=== PATIENT | male | born 1980 | race Caucasian/White ===

== ENCOUNTER → 2017-05-09 | Outpatient (CLI) | payer OTHER ==
--- NOTE | 2017-05-09 17:46 | CONS ---
CONSULTATION REASON FOR CONSULTATION: Sleep apnea. This is a 37-year-old male patient who was very much concerned about sleep apnea. He was referred to me for further evaluation. He snores. He has witnessed apneas as reported by his . He is tired. He is an active sleeper. He does not go into deep stages of sleep and occasionally sleepwalks. He is very tired and sleepy during the day. He has a brother and father, both of whom have sleep apnea, and they are on treatment with CPAP. He goes to bed around 9 p.m., wakes up at 4 a.m. in the morning. 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 He never falls asleep while driving or doing his day-to-day activities at work. His Karnak score is 12. No recent weight gain. PAST MEDICAL HISTORY: Negative. SURGICAL HISTORY: Negative. DRUG ALLERGIES: NOT KNOWN. MEDICATIONS: None. SOCIAL HISTORY: Smoker. No history of alcoholism. No history of IV drugs. FAMILY HISTORY: Brother and father have obstructive sleep apnea. REVIEW OF SYSTEMS: Twelve-point review of systems was done. No insomnia. He denies waking up choking. Occasionally he has sleepwalking, especially when he feels very tired and sleepy. No restlessness in lower extremities. No anxiety or panic attacks. No palpitation. No heartburn. No claustrophobia. No sexual dysfunction. No depression. PHYSICAL EXAMINATION: BP 142/87, pulse 80, respiration 16, temperature 97.5, saturation 96% on room air. Weight is 252. Height is 72 inches. Karnak score 12. GENERAL APPEARANCE: Calm, comfortable. Head is atraumatic, normocephalic. Neck is short. Mallampati class IV. There is no goiter or neck masses. LUNGS: Clear to auscultation. HEART: Heart sounds are regular rate and rhythm. Normal S1, S2. No S3, S4. No murmurs. ABDOMEN: Soft, nontender. No organomegaly. EXTREMITIES: No edema. No cyanosis or clubbing. NEUROLOGIC: Alert and oriented x3. There is no focal neurological deficit. PSYCHIATRIC: Negative for anxiety or depression. SKIN: Negative for any wounds or ulceration. IMPRESSION: 1. Obstructive sleep apnea strongly suspected on clinical grounds. Currently needs further investigation. 2. Daytime drowsiness with an Karnak score of 12. 3. Mallampati class IV. 4. Positive family history of obstructive sleep apnea. PLAN: 1. Encourage weight loss. 2. Proceed with screening polysomnography to assess for any sleep breathing disorder and treat accordingly. ALISHAL / IJN: [id number] /
== END | disposition home or self-care (01) ==
LOC: SLEEP 16:24
PROVIDERS: ATTEND Internal Medicine Critical Care Medicine
DX: G47.33 Obstructive sleep apnea (adult) (pediatric) (principal); F17.200 Nicotine dependence, unspecified, uncomplicated; Z83.6 Family history of other diseases of the respiratory system
CPT/HCPCS: 99211

== ENCOUNTER → 2017-11-02 | Outpatient (CLI) | payer OTHER ==
--- NOTE | 2017-11-02 09:51 | CT ---
EXAMINATION TYPE: CT chest w con DATE OF EXAM: 11/02/2017 COMPARISON: None HISTORY: Bronchospasm CT DLP: 601 mGycm Automated exposure control for dose reduction was used. CONTRAST: CT scan of the chest is performed with IV Contrast, patient injected with 100 ml mL of Isovue 300. FINDINGS: LUNGS: The lungs are grossly clear, there is no concerning parenchymal mass or nodule identified. T here is no pleural effusion or pneumothorax seen. The tracheobronchial tree is patent. MEDIASTINUM: There are no greater than 1 cm hilar or mediastinal lymph nodes. No pericardial effusi on is seen. Thoracic aorta is of normal caliber. The heart is not enlarged. Calcified hilar mediasti nal lymph nodes. UPPER ABDOMEN: No significant abnormality appreciated. OTHER: No additional significant abnormality is seen. IMPRESSION: No distinct abnormality appreciated at this time.
== END | disposition home or self-care (01) ==
LOC: RADCTMAIN 08:56
PROVIDERS: ATTEND Internal Medicine
DX: J20.8 Acute bronchitis due to other specified organisms (principal)
CPT/HCPCS: 71260; Q9967

== ENCOUNTER → 2018-11-09 | Outpatient (CLI) | payer OTHER ==
[2018-11-09 08:21] LABS: Albumin 4.3 g/dL (3.5-5.0); Bilirubin, Delta 0.2 mg/dL (0.0-0.2); Bilirubin,Unconjugated 0.6 mg/dL (0.0-1.1); Total Bilirubin 0.8 mg/dL (0.2-1.3); Total Protein 7.1 g/dL (6.3-8.2)
[2018-11-09 08:27] LABS: INR 1.1 (<1.2); Prothrombin Time 11.5 sec (9.0-12.0)
[2018-11-09 11:30] LABS: Iron Saturation 36.89 (15.00-50.00)
[2018-11-09 11:53] LABS: Protein, Total 6.4 g/dL (6.2-8.2)
[2018-11-09 11:59] LABS: Ceruloplasmin 21.4 mg/dL (20.0-60.0)
--- NOTE | 2018-11-09 16:38 | US ---
EXAMINATION TYPE: US abdomen limited DATE OF EXAM: 11/09/2018 COMPARISON: NONE CLINICAL HISTORY: R74.8 Abnormal levels other serum enzymes. no symptoms EXAM MEASUREMENTS: Liver Length: 16.5 cm Gallbladder Wall: 2 cm CBD: 0.4 cm Right Kidney: 13.6 x 6.8 x 6.7 cm Pancreas: wnl Liver: focal fatty sparring seen near gallbladder, difficult to penetrate Gallbladder: sludge seen Evidence for sonographic Suarez's sign: no CBD: wnl Right Kidney: large in size, otherwise wnl IMPRESSION: 1. Normal right upper quadrant ultrasound
[2018-11-12 11:42] LABS: Albumin 4.12 g/dL (3.80-4.90)
== END | disposition home or self-care (01) ==
LOC: RADUSWWP 07:20
PROVIDERS: ATTEND Internal Medicine Gastroenterology
DX: R74.8 Abnormal levels of other serum enzymes (principal)
CPT/HCPCS: 76705; 80076; 82390; 82728; 83516; 83540; 83550; 84165; 85610; 86038